=== PATIENT | male | born 1960 | race Caucasian/White ===

== ENCOUNTER 2017-04-03 03:57 | Emergency (ER) ==
[2017-04-03 04:02] VITALS: BP 173/93; TEMP 97.3; BMI 23.0
[2017-04-03] MEDS ORDERED: AMOXIL PO STA (04:17)
[2017-04-03] MEDS ORDERED: MOTRIN PO STA (04:17)
--- NOTE | 2017-04-03 04:18 | ED.PDOC ---
General ED Provider: Dr. JESSICA CAMPBELL Chief Complaint: Tooth Problem Stated Complaint: Patient states he has had dental problems for a while. Has not see his dentist recently. woke up with swelling of the right face with pain at 5/10 Time Seen by Physician: 04:16 Mode of Arrival: Walk-In Information Source: Patient Primary Care Provider: [facility] Nursing and Triage Documentation Reviewed and Agree: Yes EENT Complaint Exam - Dental/Oral Complaint/Exam Mechanism of Injury: No known trauma Onset/Duration: 1 day Symptoms Are: Still present Timing: Constant Initial Severity: Moderate Current Severity: Moderate Location: right upper jaw Character: Reports: Aching, Throbbing Aggravating: Reports: Cold, Chewing Alleviating: Reports: None Associated Signs and Symptoms: Reports: Swelling, Discharge, Foul odor Related History: Reports: Similar episode, Previous tooth problem, Third molars absent Cardiac Risk Factors: Reports: None Dental/Oral Surgical History: Reports: Third Molar Extractions Tooth Findings: Present: Gross decay, Gross caries, Abcess Cervical Lymphadenopathy Present: Yes Facial Swelling Present: Yes (right side) Bleeding Present: No Oropharynx Findings: Absent: Clots, Active bleeding Septal Hematoma: No Foreign Body Present: No Dysphagia Present: No Drooling Present: No Asymmetrical Tonsillar Swelling Present: No Uvula Midline: No Yesenia-tonsillar Fluctuence: No Trismus Present: No Palatal Petechiae Present: No Scarlatinaform Rash Present: No Teeth Picture: 1 - missing teeth 2 - decay to the root Differential Diagnoses: Dental Abcess, Dental Caries Review of Systems - Review Of Systems Constitutional: Reports: No symptoms Eyes: Reports: No symptoms Ears, Nose, Mouth, Throat: Reports: Mouth pain, Mouth swelling Respiratory: Reports: No symptoms Cardiac: Reports: No symptoms GI: Reports: No symptoms : Reports: No symptoms Musculoskeletal: Reports: No symptoms Skin: Reports: No symptoms Neurological: Reports: No symptoms Endocrine: Reports: No symptoms Hematologic/Lymphatic: Reports: No symptoms All Other Systems: Reviewed and Negative Past Medical History - Past Medical History Endocrine: Reports: None Cardiovascular: Reports: None Respiratory: Reports: None Hematological: Reports: None Gastrointestinal: Reports: Pancreatitis Genitourinary: Reports: None Neuro/Psych: Reports: Anxiety, Depression Musculoskeletal: Reports: None Cancer: Reports: None - Surgical History General Surgical History: Reports: None - Family History Family History: Reports: None - Social History Smoking Status: Current every day smoker Hx Substance Use: No Alcohol Screening: Occasionally - Immunizations Tetanus Shot up to Date: Yes Physical Exam - Physical Exam Appearance: Ill-appearing Ill-appearing: Mild Pain Distress: Moderate Eyes: MARCELINA, EOMI, Conjunctiva clear ENT: Nose normal Neck: Supple Respiratory: Airway patent, Breath sounds clear, Breath sounds equal, Respirations nonlabored Cardiovascular: RRR, Pulses normal, No rub, No murmur Musculoskeletal: Normal strength, ROM intact, No edema, No calf tenderness Skin: Warm, Dry, Normal color Psychiatric: Anxious Critical Care Note - Critical Care Note Total Time (mins): 0 Course - Course Vital Signs: Temp Pulse Resp BP Pulse Ox 04/03/17 03:57 97.3 F L 71 20 173/93 H 95 Departure - Departure Time of Disposition: 04:22 Disposition: HOME SELF-CARE Discharge Problem: Dental abscess Instructions: Dental Abscess (ED) Condition: Fair Pt referred to PMD for follow-up: Yes Additional Instructions: Follow up with your dentist in 1-3 days take medications as prescribed Prescriptions: Amoxicillin [Amoxil] 500 mg PO TID #30 capsule Ibuprofen [Motrin] 600 mg PO Q6H PRN #30 tablet PRN Reason: Analgesia Allergies/Adverse Reactions: Allergies No Known Allergies Allergy (Verified 04/03/17 04:02) Home Medications: Ambulatory Orders Amoxicillin [Amoxil] 500 mg PO TID #30 capsule 04/03/17 Ibuprofen [Motrin] 600 mg PO Q6H PRN #30 tablet 04/03/17 Disposition Discussed With: Patient, Family
== END 2017-04-03 04:40 | disposition home or self-care (01) ==
LOC: ED 03:57
DX: K04.7 Periapical abscess without sinus (principal); K02.7 Dental root caries; F17.210 Nicotine dependence, cigarettes, uncomplicated
CPT/HCPCS: 99282

== ENCOUNTER 2018-08-10 10:06 | Emergency (ER) ==
[2018-08-10 10:10] VITALS: BP 153/93; TEMP 97.6; BMI 21.4
--- NOTE | 2018-08-10 11:32 | ED.PDOC ---
General ED Provider: Dr. ALDA WESTBROOK Chief Complaint: Abnormal Labs Stated Complaint: nausea, vomiting, diarrhea, hypokalemia as out pt Time Seen by Physician: 10:10 (seen with sanket at all times ) Mode of Arrival: Walk-In Information Source: Patient Exam Limitations: No limitations Primary Care Provider: MEENA DOBBS Nursing and Triage Documentation Reviewed and Agree: Yes Does patient meet sepsis criteria?: No System Inflammatory Response Syndrome: Not Applicable Sepsis Protocol: For patient's 13 years and over: Temp is 96.8 and below OR 101 and greater Pulse >90 BPM Resp >20/minute Acutely Altered Mental Status Are patient's symptoms suggestive of a new infection, such as: -Pneumonia -Skin, Soft Tissue -Endocarditis -UTI -Bone, Joint Infection -Implantable Device -Acute Abdominal Infection -Wound Infection -Meningitis -Blood Stream Catheter Infection -Unknown GI Complaint Exam - Vomiting/Diarrhea Complaint/Exam Onset/Duration: x2 days Symptoms Are: Resolved Initial Severity: Moderate Current Severity: None Character of Vomiting: Reports: Non-bilious Character of Diarrhea: Reports: Watery Aggravating: Reports: None Alleviating: Reports: None Associated Signs and Symptoms: Denies: Dizziness, Light-headedness, Melena, Hematemesis, Fever, Abdominal pain, Cramping Non-GI Risk Factors: Reports: None Surgical Obstruction Risk Factors: Reports: None Related Surgical History: Reports: None Abdominal Findings: Present: Rebound tenderness Kussmaul Respirations Present: No Differential Diagnoses: Viral Gastroenteritis Review of Systems - Review Of Systems Constitutional: Reports: No symptoms Eyes: Reports: No symptoms Ears, Nose, Mouth, Throat: Reports: No symptoms Respiratory: Reports: No symptoms Cardiac: Reports: No symptoms GI: Reports: Diarrhea, Nausea, Vomiting : Reports: No symptoms Musculoskeletal: Reports: No symptoms Skin: Reports: No symptoms Neurological: Reports: No symptoms Endocrine: Reports: No symptoms Hematologic/Lymphatic: Reports: No symptoms All Other Systems: Reviewed and Negative Past Medical History - Past Medical History Previously Healthy: Yes Endocrine: Reports: None Cardiovascular: Reports: None Respiratory: Reports: None Hematological: Reports: None Gastrointestinal: Reports: Pancreatitis Genitourinary: Reports: None Neuro/Psych: Reports: Anxiety, Depression Musculoskeletal: Reports: None Cancer: Reports: None - Surgical History General Surgical History: Reports: None - Family History Family History: Reports: None - Social History Smoking Status: Current every day smoker Hx Substance Use: No Alcohol Screening: Occasionally Physical Exam - Physical Exam Appearance: Well-appearing, No pain distress, Well-nourished Eyes: MARCELINA, EOMI, Conjunctiva clear ENT: Ears normal, Nose normal, Oropharynx normal Respiratory: Airway patent, Breath sounds clear, Breath sounds equal, Respirations nonlabored Cardiovascular: RRR, Pulses normal, No rub, No murmur GI/: Soft, Nontender, No masses, Bowel sounds normal, No Organomegaly Musculoskeletal: Normal strength, ROM intact, No edema, No calf tenderness Skin: Warm, Dry, Normal color Neurological: Sensation intact, Motor intact, Reflexes intact, Cranial nerves intact, Alert, Oriented Psychiatric: Affect appropriate, Mood appropriate Interpretation - Radiology Interpretation Radiology Interpretation By: Radiologist - Bulk Receiver Rate: Normal Rhythm: Sinus - EKG Interpretation Rate: Normal Rhythm: Sinus Ectopy: None [place]: NL ST Segment: Normal Critical Care Note - Critical Care Note Total Time (mins): 0 Course - Course Hematology/Chemistry: 08/10/18 10:45 08/10/18 13:45 Orders, Labs, Meds: Lab Review 08/10/18 08/10/18 08/10/18 10:45 10:45 13:45 WBC 4.95 RBC 4.40 L Hgb 15.7 Hct 43.3 MCV 98.4 H MCH 35.7 H MCHC 36.3 H RDW Coeff of Ping 14.0 Plt Count 197 Immature Gran % (Auto) 0.2 Neut % (Auto) 67.3 Lymph % (Auto) 19.8 Rich % (Auto) 11.7 H Eos % (Auto) 0.4 Baso % (Auto) 0.6 Immature Gran # (Auto) 0.0 Neut # (Auto) 3.3 Lymph # (Auto) 1.0 Rich # (Auto) 0.6 Eos # (Auto) 0.0 Baso # (Auto) 0.0 Sodium 138.4 137.6 Potassium 2.74 L* 3.16 L Chloride 96.5 L 96.7 L Carbon Dioxide 37.3 H 38.1 H Anion Gap 7.34 5.96 BUN 5.0 L 4.9 L Creatinine 0.69 0.65 Estimated GFR (MDRD) 119.00 128.00 BUN/Creatinine Ratio 7.24 7.53 Glucose 95.3 92.7 Calcium 9.47 9.12 Total Bilirubin 0.96 AST 122.3 H ALT 50.4 H Alkaline Phosphatase 70.5 Total Protein 7.80 Albumin 4.33 Globulin 3.47 Albumin/Globulin Ratio 1.24 Orders Category Date Time Status EKG-(ED ONLY) Stat CARDIO 08/10/18 10:30 Completed ED IV/MEDIPORT/POWERPORT .ONCE EMERGENCY 08/10/18 11:34 Active BASIC METABOLIC PANEL Stat LAB 08/10/18 13:45 Completed CBC W/ AUTO DIFF Stat LAB 08/10/18 10:45 Completed COMPREHENSIVE METABOLIC PANEL Stat LAB 08/10/18 10:45 Completed 0.9 % Sodium Chloride [Saline Flush] MEDS 08/10/18 11:34 Active 1 syr IVF PRN PRN Potassium Chloride [K-Dur] MEDS 08/10/18 11:35 Discontinued 40 meq PO ONCE STA Potassium Chloride [Potassium Chloride Premix Run] 10 MEDS 08/10/18 11:34 Discontinued meq Premix 100 ml Water 1 bag IV ONCE Potassium Chloride [Potassium Chloride Premix Run] 100 MEDS 08/10/18 11:48 Discontinued ml IV .STK-MED Sodium Chloride 0.9% [Sodium Chloride] 1,000 ml MEDS 08/10/18 11:47 Active IV 250 mls/hr Medications Generic Name Dose Route Start Last Admin Trade Name Freq PRN Reason Stop Dose Admin Sodium Chloride 1,000 mls @ 250 mls/hr 08/10/18 11:47 08/10/18 12:02 Sodium Chloride IV 08/10/18 15:46 250 mls/hr .Q4H STA Administration Sodium Chloride 1 syr 08/10/18 11:34 08/10/18 12:03 Saline Flush IVF 1 syr PRN PRN Administration To flush IV Discontinued Medications Generic Name Dose Route Start Last Admin Trade Name Freq PRN Reason Stop Dose Admin Potassium Chloride 10 meq/ 100 mls @ 100 mls/hr 08/10/18 11:34 08/10/18 12:01 Sterile Water IV 08/10/18 12:33 100 mls/hr ONCE STA Administration Potassium Chloride 40 meq 08/10/18 11:35 08/10/18 12:03 K-Dur PO 08/10/18 11:36 40 meq ONCE STA Administration Vital Signs: Temp Pulse Resp BP Pulse Ox 12/28/18 10:08 97.6 F 99 H 20 153/93 H 96 Departure - Departure Time of Disposition: 14:44 (RECHEKED K LEVELS ABOVE 3 ) Disposition: HOME SELF-CARE Discharge Problem: Laboratory test result abnormal, Hypokalemia Instructions: Hypokalemia (ED) Condition: Good Pt referred to PMD for follow-up: Yes IPMP verified?: No Additional Instructions: Please call your Family Physician as soon as possible to schedule a follow-up appointment.MAKE SURE YOUR POTASSIUM GETS CHECKED SOON POSSIBLE IF THE POTASSIUM RUNS LOW BELOW 3 IT CAN CAUSE BAD HEART RYTHMS AND EVEN . Allergies/Adverse Reactions: Allergies No Known Allergies Allergy (Verified 08/10/18 10:10) Home Medications: Ambulatory Orders Albuterol Sulfate [Proair Hfa] 2 puff IH Q4H PRN 08/10/18 Disposition Discussed With: Patient, Family
[2018-08-10] MEDS ORDERED: POTASSIUM CHLORIDE PREMIX RUN 10 MEQ in PREMIX 100 ML WATER 1 BAG IV STA (11:34)
[2018-08-10] MEDS ORDERED: K-DUR PO STA (11:35)
[2018-08-10] MEDS ORDERED: SODIUM CHLORIDE 1,000 ML IV STA (11:47)
[2018-08-10] MEDS ORDERED: POTASSIUM CHLORIDE PREMIX RUN 100 ML IV ONE (11:48)
== END 2018-08-10 15:41 | disposition home or self-care (01) ==
LOC: ED 10:06
DX: E87.6 Hypokalemia (principal); R79.9 Abnormal finding of blood chemistry, unspecified; R11.2 Nausea with vomiting, unspecified; R19.7 Diarrhea, unspecified; F17.210 Nicotine dependence, cigarettes, uncomplicated
CPT/HCPCS: 36415; 80048; 80053; 85025; 93005; 93010; 96361; 96365; 99283

== ENCOUNTER 2018-09-28 07:49 | Emergency (ER) ==
[2018-09-28 07:53] VITALS: BP 138/93; TEMP 98.1; BMI 20.9
--- NOTE | 2018-09-28 09:12 | ED.PDOC ---
General ED Provider: Dr. ALDA WESTBROOK Chief Complaint: Abnormal Labs Stated Complaint: low serum K Time Seen by Physician: 08:00 (pt was contacted by the [facility] WAS TOLD THAT HIS SERUM K is low) Mode of Arrival: Walk-In Information Source: Patient Exam Limitations: No limitations Primary Care Provider: MEENA DOBBS Nursing and Triage Documentation Reviewed and Agree: Yes (no chest pain nor syncope reported ) Does patient meet sepsis criteria?: No System Inflammatory Response Syndrome: Not Applicable Sepsis Protocol: For patient's 13 years and over: Temp is 96.8 and below OR 101 and greater Pulse >90 BPM Resp >20/minute Acutely Altered Mental Status Are patient's symptoms suggestive of a new infection, such as: -Pneumonia -Skin, Soft Tissue -Endocarditis -UTI -Bone, Joint Infection -Implantable Device -Acute Abdominal Infection -Wound Infection -Meningitis -Blood Stream Catheter Infection -Unknown Miscellaneous Complaint Exam - Complex/Multi-System Complaint/Exam Onset/Duration: 1 day Symptoms Are: Still present Episodes Lasting: Hours Location of Pain: no pain Associated Signs and Symptoms: Denies: Decreased responsiveness, Confusion, Agitation, Dizziness, Weakness, Syncope, Headache, Short of air, Cough, Wheezing , Hemoptysis, Chest pain, Palpitations, Edema, Nausea, Vomiting, Diarrhea, Abdominal pain, Back pain, Dysuria, Hematemesis, Melena, Decreased oral intake, Fever, Diaphoresis, Immunocompromised, Anticoagulation Therapy, Recent medication changes, Indwelling medical imaging specialist, Prior MRSA, Prior VRE, Recent trauma, Remote trauma Recent Echo/LV Function: No Respiratory Distress: None JVD Present: No Tachypnea Present: No Stridor Present: No Abdominal Findings: Present: Normal findings Glascow Coma Scale (see protocol): 15 Focal Weakness: Present: None Focal Sensory Loss: Present: None Gait: Normal Babinski Sign: Negative Right, Negative Left Quality Indicators for Cardiac Chest Pain: EKG in 10min. Quality Indicators for AMI: EKG in 10min. Review of Systems - Review Of Systems Constitutional: Reports: No symptoms Eyes: Reports: No symptoms Ears, Nose, Mouth, Throat: Reports: No symptoms Respiratory: Reports: No symptoms Cardiac: Reports: No symptoms GI: Reports: No symptoms : Reports: No symptoms Musculoskeletal: Reports: No symptoms Skin: Reports: No symptoms Neurological: Reports: No symptoms Endocrine: Reports: No symptoms Hematologic/Lymphatic: Reports: No symptoms All Other Systems: Reviewed and Negative Past Medical History - Past Medical History Previously Healthy: Yes Endocrine: Reports: None Cardiovascular: Reports: None Respiratory: Reports: None Hematological: Reports: None Gastrointestinal: Reports: Pancreatitis Genitourinary: Reports: None Neuro/Psych: Reports: Anxiety, Depression Musculoskeletal: Reports: None Cancer: Reports: None - Surgical History General Surgical History: Reports: None - Family History Family History: Reports: None - Social History Smoking Status: Current every day smoker Hx Substance Use: No Alcohol Screening: Heavy - Immunizations Tetanus Shot up to Date: Yes Physical Exam - Physical Exam Appearance: Well-appearing, No pain distress, Well-nourished Eyes: MARCELINA, EOMI, Conjunctiva clear ENT: Ears normal, Nose normal, Oropharynx normal Respiratory: Airway patent, Breath sounds clear, Breath sounds equal, Respirations nonlabored Cardiovascular: RRR, Pulses normal, No rub, No murmur GI/: Soft, Nontender, No masses, Bowel sounds normal, No Organomegaly Musculoskeletal: Normal strength, ROM intact, No edema, No calf tenderness Skin: Warm, Dry, Normal color Neurological: Sensation intact, Motor intact, Reflexes intact, Cranial nerves intact, Alert, Oriented Psychiatric: Affect appropriate, Mood appropriate Interpretation - Transcription Typist Rate: Normal Rhythm: Sinus Ectopy: None - EKG Interpretation Rate: Normal Rhythm: Sinus Rate: Normal Rhythm: Sinus (L.B.B.B) Ectopy: None [place]: NL ST Segment: Normal Critical Care Note - Critical Care Note Total Time (mins): 0 Course - Course Hematology/Chemistry: 09/28/18 11:00 Orders, Labs, Meds: Lab Review 09/28/18 09/28/18 08:15 11:00 Sodium 142.0 141.1 Potassium 2.54 L* 3.00 L Chloride 94.7 L 96.3 L Carbon Dioxide 36.9 H 39.1 H Anion Gap 12.94 8.70 BUN 5.2 L 4.9 L Creatinine 0.69 0.69 Estimated GFR (MDRD) 119.00 119.00 BUN/Creatinine Ratio 7.53 7.10 Glucose 95.2 99.3 Calcium 9.30 9.30 Total Bilirubin 0.74 AST 139.8 H ALT 47.2 Alkaline Phosphatase 81.7 Total Protein 7.31 Albumin 4.03 Globulin 3.28 Albumin/Globulin Ratio 1.22 Orders Category Date Time Status EKG-(ED ONLY) Stat CARDIO 09/28/18 08:10 Completed BMP [BASIC METABOLIC PANEL] Stat LAB 09/28/18 11:00 Completed COMPREHENSIVE METABOLIC PANEL Stat LAB 09/28/18 08:15 Completed Potassium Chloride [K-Dur] MEDS 09/28/18 09:14 Discontinued 40 meq PO ONCE STA Potassium Chloride [Potassium Chloride Premix Run] 10 MEDS 09/28/18 09:13 Discontinued meq Premix 100 ml Water 1 bag IV ONCE Potassium Chloride [Potassium Chloride Premix Run] 100 MEDS 09/28/18 09:22 Discontinued ml IV .STK-MED Medications Discontinued Medications Generic Name Dose Route Start Last Admin Trade Name Freq PRN Reason Stop Dose Admin Potassium Chloride 10 meq/ 100 mls @ 100 mls/hr 09/28/18 09:13 09/28/18 09:27 Sterile Water IV 09/28/18 10:12 100 mls/hr ONCE STA Administration Potassium Chloride 40 meq 09/28/18 09:14 09/28/18 09:27 K-Dur PO 09/28/18 09:15 40 meq ONCE STA Administration Vital Signs: Temp Pulse Resp BP Pulse Ox 09/28/18 07:49 98.1 F 76 20 138/93 H 96 Departure - Departure Time of Disposition: 09:13 Disposition: HOME SELF-CARE Discharge Problem: Hypokalemia Instructions: Hypokalemia (ED) Condition: Good Pt referred to PMD for follow-up: Yes IPMP verified?: No Additional Instructions: Please call your Family Physician as soon as possible to schedule a follow-up appointment. Allergies/Adverse Reactions: Allergies No Known Allergies Allergy (Verified 08/10/18 10:10) Home Medications: Ambulatory Orders Albuterol Sulfate [Proair Hfa] 2 puff IH Q4H PRN 08/10/18
[2018-09-28] MEDS ORDERED: POTASSIUM CHLORIDE PREMIX RUN 10 MEQ in PREMIX 100 ML WATER 1 BAG IV STA (09:13)
[2018-09-28] MEDS ORDERED: K-DUR PO STA (09:14)
[2018-09-28] MEDS ORDERED: POTASSIUM CHLORIDE PREMIX RUN 100 ML IV ONE (09:22)
== END 2018-09-28 11:48 | disposition home or self-care (01) ==
LOC: ED 07:49
DX: R79.9 Abnormal finding of blood chemistry, unspecified (principal); Z72.0 Tobacco use; E87.6 Hypokalemia
CPT/HCPCS: 36415; 80048; 80053; 93005; 93010; 96365; 99282

== ENCOUNTER 2018-10-17 09:17 | Outpatient (CLI) | END 2018-10-17 09:18 | disposition home or self-care (01) | LOC: AMBL 09:17 | PROVIDERS: ATTEND Internal Medicine | DX: R55 Syncope and collapse (principal); E87.6 Hypokalemia; R20.0 Anesthesia of skin; R20.2 Paresthesia of skin; R25.2 Cramp and spasm ==

== ENCOUNTER 2018-12-24 12:25 | Outpatient (CLI) | END 2018-12-24 12:39 | disposition short-term general hospital (02) | LOC: AMBL 12:25 | PROVIDERS: ATTEND Internal Medicine | DX: R20.0 Anesthesia of skin (principal) ==

== ENCOUNTER 2019-01-04 21:08 | Emergency (ER) ==
[2019-01-04 21:16] VITALS: BP 124/77; TEMP 98.6; BMI 20.3
--- NOTE | 2019-01-04 22:01 | ED.PDOC ---
General ED Provider: Dr. ZAKIYA BUCK-ER Chief Complaint: Non-specific Complaint Stated Complaint: my arm is painful and throbbinhb Time Seen by Physician: 21:15 Mode of Arrival: Walk-In Information Source: Patient Exam Limitations: No limitations Nursing and Triage Documentation Reviewed and Agree: Yes Does patient meet sepsis criteria?: No System Inflammatory Response Syndrome: Not Applicable Sepsis Protocol: For patient's 13 years and over: Temp is 96.8 and below OR 101 and greater Pulse >90 BPM Resp >20/minute Acutely Altered Mental Status Are patient's symptoms suggestive of a new infection, such as: -Pneumonia -Skin, Soft Tissue -Endocarditis -UTI -Bone, Joint Infection -Implantable Device -Acute Abdominal Infection -Wound Infection -Meningitis -Blood Stream Catheter Infection -Unknown Musculoskeletal Complaint Exam - Upper Extremity Complaint/Exam Location of Pain: Reports: Right, Arm Mechanism of Injury: Reports: No known trauma Onset/Duration: 45 min Symptoms Are: Still present Timing: Constant Initial Severity: Mild Current Severity: Mild Location: Reports: Discrete Character: Reports: Dull, Aching Aggravating: Reports: Lifting Non-Orthopedic Risk Factors: Reports: None Related Surgical History: Reports: None NV Bundle Intact Distal to Injury: Yes Compartment Syndrome Risk Factors: Present: Pain Review of Systems - Review Of Systems Constitutional: Reports: No symptoms Eyes: Reports: No symptoms Ears, Nose, Mouth, Throat: Reports: No symptoms Respiratory: Reports: No symptoms Cardiac: Reports: No symptoms GI: Reports: No symptoms : Reports: No symptoms Musculoskeletal: Reports: No symptoms Skin: Reports: No symptoms Neurological: Reports: No symptoms Endocrine: Reports: No symptoms Hematologic/Lymphatic: Reports: No symptoms All Other Systems: Reviewed and Negative Past Medical History - Past Medical History Previously Healthy: Yes Endocrine: Reports: None Cardiovascular: Reports: None Respiratory: Reports: None Hematological: Reports: None Gastrointestinal: Reports: Pancreatitis Genitourinary: Reports: None Neuro/Psych: Reports: Anxiety, Depression Musculoskeletal: Reports: None Cancer: Reports: None - Surgical History General Surgical History: Reports: None - Family History Family History: Reports: None - Social History Smoking Status: Current every day smoker Hx Substance Use: No Alcohol Screening: Heavy - Immunizations Tetanus Shot up to Date: Yes Physical Exam - Physical Exam Appearance: Well-appearing Pain Distress: Mild Eyes: MARCELINA, EOMI, Conjunctiva clear ENT: Ears normal, Nose normal, Oropharynx normal Neck: Supple Respiratory: Airway patent, Breath sounds clear, Breath sounds equal, Respirations nonlabored Cardiovascular: RRR, No rub, No murmur GI/: Soft, Nontender, No masses, Bowel sounds normal, No Organomegaly Musculoskeletal: Normal strength, ROM intact, No edema, No calf tenderness Skin: Warm, Dry, Normal color Neurological: Sensation intact, Motor intact, Reflexes intact, Cranial nerves intact, Alert, Oriented Psychiatric: Affect appropriate Physician Notification - Case Discussed Physician Notified: dr tresa long and dr lay shelby--Nadja Time of Notification: 22:02 Critical Care Note - Critical Care Note Total Time (mins): 0 Course - Course Vital Signs: Temp Pulse Resp BP Pulse Ox 01/04/19 21:09 98.6 F 66 20 124/77 97 Departure - Departure Time of Disposition: 22:01 Disposition: HOME SELF-CARE Discharge Problem: Brachial artery aneurysm, right Instructions: Arm Pain (ED) Condition: Good Pt referred to PMD for follow-up: Yes IPMP verified?: No Allergies/Adverse Reactions: Allergies No Known Allergies Allergy (Verified 01/04/19 21:17) Home Medications: Ambulatory Orders Albuterol Sulfate [Proair Hfa] 2 puff IH Q4H PRN 08/10/18 Transfer Form Completed: Yes Disposition Discussed With: Patient
== END 2019-01-04 22:00 | disposition home or self-care (01) ==
LOC: ED 21:08
DX: I72.1 Aneurysm of artery of upper extremity (principal); M79.603 Pain in arm, unspecified; F17.210 Nicotine dependence, cigarettes, uncomplicated
CPT/HCPCS: 99285

== ENCOUNTER 2019-04-02 20:43 | Emergency (ER) ==
[2019-04-02 20:53] VITALS: BP 161/86; TEMP 97.6; BMI 21.7
--- NOTE | 2019-04-02 21:01 | ED.PDOC ---
General ED Provider: Dr. JESSICA CAMPBELL Chief Complaint: Abnormal Labs Stated Complaint: was told by the CO that he should be seen here due to low potassium of 2. Denies any symptoms. Time Seen by Physician: 21:00 Mode of Arrival: Walk-In Information Source: Patient Primary Care Provider: TED DURAN Nursing and Triage Documentation Reviewed and Agree: Yes Does patient meet sepsis criteria?: No System Inflammatory Response Syndrome: Not Applicable Sepsis Protocol: For patient's 13 years and over: Temp is 96.8 and below OR 101 and greater Pulse >90 BPM Resp >20/minute Acutely Altered Mental Status Are patient's symptoms suggestive of a new infection, such as: -Pneumonia -Skin, Soft Tissue -Endocarditis -UTI -Bone, Joint Infection -Implantable Device -Acute Abdominal Infection -Wound Infection -Meningitis -Blood Stream Catheter Infection -Unknown Review of Systems - Review Of Systems Constitutional: Reports: No symptoms Eyes: Reports: No symptoms Ears, Nose, Mouth, Throat: Reports: No symptoms Respiratory: Reports: No symptoms Cardiac: Reports: No symptoms GI: Reports: No symptoms : Reports: No symptoms Musculoskeletal: Reports: No symptoms Skin: Reports: No symptoms Neurological: Reports: No symptoms Endocrine: Reports: No symptoms Hematologic/Lymphatic: Reports: No symptoms All Other Systems: Reviewed and Negative Past Medical History - Past Medical History Previously Healthy: Yes Endocrine: Reports: None Cardiovascular: Reports: None Respiratory: Reports: None Hematological: Reports: None Gastrointestinal: Reports: Pancreatitis Genitourinary: Reports: None Neuro/Psych: Reports: Anxiety, Depression Musculoskeletal: Reports: None Cancer: Reports: None Other Pertinent Past Medical History: Hypokalemia - Surgical History General Surgical History: Reports: None - Family History Family History: Reports: None - Social History Smoking Status: Current every day smoker, Heavy tobacco smoker Hx Substance Use: Yes (ALCOHOL) Alcohol Screening: Occasionally - Immunizations Tetanus Shot up to Date: Yes Physical Exam - Physical Exam Appearance: Well-appearing, No pain distress, Well-nourished Eyes: MARCELINA, EOMI, Conjunctiva clear ENT: Ears normal, Nose normal, Oropharynx normal Respiratory: Airway patent, Breath sounds clear, Breath sounds equal, Respirations nonlabored Cardiovascular: RRR, Pulses normal, No rub, No murmur GI/: Soft, Nontender, No masses, Bowel sounds normal, No Organomegaly Musculoskeletal: Normal strength, ROM intact, No edema, No calf tenderness Skin: Warm, Dry, Normal color Neurological: Sensation intact, Motor intact, Reflexes intact, Cranial nerves intact, Alert, Oriented Psychiatric: Affect appropriate, Mood appropriate Interpretation - EKG Interpretation Rate: Normal Rhythm: Sinus Ectopy: None Norborne: NL ST Segment: Normal Interpretation: T wave flatenning. Critical Care Note - Critical Care Note Total Time (mins): 35 Course - Course Hematology/Chemistry: 04/02/19 21:08 04/02/19 21:08 Orders, Labs, Meds: Lab Review 04/02/19 04/02/19 04/02/19 21:00 21:08 21:08 WBC 5.67 RBC 4.47 L Hgb 16.2 Hct 44.7 MCV 100.0 H MCH 36.2 H MCHC 36.2 H RDW Coeff of Ping 13.2 Plt Count 192 Immature Gran % (Auto) 0.2 Neut % (Auto) 52.7 Lymph % (Auto) 30.9 Dubois % (Auto) 14.1 H Eos % (Auto) 1.4 Baso % (Auto) 0.7 Immature Gran # (Auto) 0.0 Neut # (Auto) 3.0 Lymph # (Auto) 1.8 Dubois # (Auto) 0.8 Eos # (Auto) 0.1 Baso # (Auto) 0.0 Sodium 142.8 Potassium 2.73 L* Chloride 100.9 Carbon Dioxide 35.7 H Anion Gap 8.93 BUN 3.8 L Creatinine 0.72 Estimated GFR (MDRD) 113.00 BUN/Creatinine Ratio 5.27 Glucose 94.0 Calcium 9.18 Magnesium 1.88 Total Bilirubin 0.52 AST 49.6 ALT 23.3 Alkaline Phosphatase 68.0 Total Protein 7.24 Albumin 3.90 Globulin 3.34 Albumin/Globulin Ratio 1.16 Orders Category Date Time Status EKG-(ED ONLY) Stat CARDIO 04/02/19 21:47 Completed ED IV/MEDIPORT/POWERPORT .ONCE EMERGENCY 04/02/19 21:30 Active CBC W/ AUTO DIFF Stat LAB 04/02/19 21:08 Completed CMP [COMPREHENSIVE METABOLIC PANEL] Stat LAB 04/02/19 21:08 Completed MAGNESIUM Stat LAB 04/02/19 21:00 Completed 0.9 % Sodium Chloride [Saline Flush] MEDS 04/02/19 21:30 Discontinued 1 syr IVF PRN PRN Potassium Chloride Additive [Potassium Chloride 20 Meq MEDS 04/02/19 21:30 Discontinued Vial] 20 meq IV ONCE STA Potassium Chloride [K-Dur] MEDS 04/02/19 21:32 Discontinued 20 meq PO ONCE STA Sodium Chloride 0.9% [Sodium Chloride] 1,000 ml MEDS 04/02/19 21:31 Discontinued IV BOLUS Medications Discontinued Medications Generic Name Dose Route Start Last Admin Trade Name Freq PRN Reason Stop Dose Admin Sodium Chloride 1,000 mls @ 500 mls/hr 04/02/19 21:31 04/02/19 21:48 Sodium Chloride IV 04/02/19 23:30 500 mls/hr BOLUS STA Administration Potassium Chloride 20 meq 04/02/19 21:30 04/02/19 21:48 Potassium Chloride 20 Meq Vial IV 04/02/19 21:31 20 meq ONCE STA Administration Potassium Chloride 20 meq 04/02/19 21:32 04/02/19 21:50 K-Dur PO 04/02/19 21:33 20 meq ONCE STA Administration Sodium Chloride 1 syr 04/02/19 21:30 04/02/19 21:47 Saline Flush IVF 1 syr PRN PRN Administration To flush IV Vital Signs: Temp Pulse Resp BP Pulse Ox 04/02/19 20:44 97.6 F 65 18 161/86 H 95 Departure - Departure Time of Disposition: 23:50 Disposition: HOME SELF-CARE Discharge Problem: Hypokalemia Instructions: Hypokalemia (ED) Condition: Stable Pt referred to PMD for follow-up: Yes IPMP verified?: No Additional Instructions: Continue home potassium [facility] Allergies/Adverse Reactions: Allergies No Known Allergies Allergy (Verified 04/02/19 20:53) Home Medications: Ambulatory Orders Albuterol Sulfate [Proair Hfa] 2 puff IH Q4H PRN 08/10/18 Disposition Discussed With: Patient
[2019-04-02] MEDS ORDERED: POTASSIUM CHLORIDE 20 MEQ VIAL IV STA (21:30)
[2019-04-02] MEDS ORDERED: SODIUM CHLORIDE 1,000 ML IV STA (21:31)
[2019-04-02] MEDS ORDERED: K-DUR PO STA (21:32)
== END 2019-04-02 23:55 | disposition home or self-care (01) ==
LOC: ED 20:43
DX: E87.6 Hypokalemia (principal); F17.210 Nicotine dependence, cigarettes, uncomplicated
CPT/HCPCS: 36415; 80053; 83735; 85025; 93005; 93010; 96360; 96361; 99283